=== PATIENT | male | born 1990 | race Asian ===

== ENCOUNTER 2017-08-11 01:16 | Emergency (ER) | payer BC ==
[~2017-08-11] VITALS: Ht 182.9 cm; Wt 127.0 kg
[2017-08-11 01:29] VITALS: BP_SYST 160
--- NOTE | 2017-08-11 01:33 | NUR ---
Placed in hallway.
--- NOTE | 2017-08-11 01:50 | NUR ---
Patient to ER bed 4 to gown for evaluation. Side rails up.
--- NOTE | 2017-08-11 01:55 | NUR ---
Patient AOx4, ambulatory, presents to ER with complaint of generalized rash and itchiness x5 hours. Patient states he has not eaten anything out of the ordinary. Patient states no medication taken. Patient states no allergies. No other symptoms or complaints at this time. No acute distress noted.
--- NOTE | 2017-08-11 02:14 | NUR ---
DANIELA Churchill at bedside for medical evaluation.
[2017-08-11] MEDS: DIPHENHYDRAMINE HCL 50 MG CAPSULE PO ONE (02:43)
[2017-08-11] MEDS: PREDNISONE 20 MG TABLET PO ONE (02:43)
--- NOTE | 2017-08-11 03:00 | NUR ---
No adverse reactions noted after medication administration. Will continue to monitor.
[2017-08-11 03:13] VITALS: BP_SYST 154
--- NOTE | 2017-08-11 03:13 | NUR ---
Patient given written and verbal discharge instructions and verbalizes understanding. ER MD discussed with patient the results and treatment provided. Patient in stable condition. ID arm band removed. Rx of Medrol Dosepak given. Patient educated on pain management and to follow up with PMD. Pain Scale 0/10. Opportunity for questions provided and answered.
== END 2017-08-11 03:13 | disposition home or self-care (01) ==
LOC: SED 01:16
DX: L50.0 Allergic urticaria (principal)
CPT/HCPCS: 99283; J7512; Q0163